=== PATIENT | female | born 2005 | race Two or more races ===

== ENCOUNTER 2023-11-19 03:47 | Emergency (ER) | payer OTHER ==
[~2023-11-19] VITALS: Ht 152.4 cm; Wt 50.8 kg
[2023-11-19 05:09] LABS: HEMATOCRIT 38.3 % (36.0-45.00); HEMOGLOBIN 12.8 g/dL (12.0-15.00); MEAN CELL VOLUME 76.9 fL (80.00-100.00); MEAN CORPUSCULAR HEMOGLOBIN 25.7 pg (27.00-32.0); MEAN CORPUSCULAR HGB CONC 33.4 g/dl (32.0-36.0); PLATELET COUNT 312 K/uL (150-450); RED BLOOD COUNT 4.99 M/uL (4.00-6.00); RED CELL DISTRIBUTION WIDTH 15.7 % (11.5-14.5)
[2023-11-19 05:09] LABS: PH,URINE 5.5 (5.0-8.0); URINE APPEARANCE Clear; URINE BILIRRUBIN Negative (NEGATIVE); URINE BLOOD Negative; URINE COLOR Yellow; URINE GLUCOSE Negative (NEGATIVE); URINE LEUKOCYTE Trace; URINE NITRATE Negative; URINE PROTEIN Negative (NEGATIVE); URINE UROBILINOGEN 0.2 E.U./dl
[2023-11-19 05:13] LABS: URINE BACTERIA 1355.5 uL (0.0-1933); URINE EPITHELIAL CELLS 19.4 uL (0.0-38.8); URINE WBC 80.9 uL (0.0-23.2)
[2023-11-19 05:14] LABS: URINE RBC 1.5 uL (0.0-20.8)
[2023-11-19] MEDS ORDERED: AMOX-CLAV 875-1 EACH PO (05:28)
[2023-11-19] MEDS ORDERED: PEPCID AC20 MG PO (05:28)
== END 2023-11-19 05:36 | disposition home or self-care (01) ==
LOC: ER 03:47
PROVIDERS: General Practice
DX: N39.0 Urinary tract infection, site not specified (principal); Z20.822 Contact with and (suspected) exposure to COVID-19